=== PATIENT | male | born 1970 | race Caucasian/White ===

== ENCOUNTER 2021-10-14 10:03 | Emergency (ER) | payer BC, OTHER ==
[~2021-10-14] VITALS: Wt 84.9 kg
[2021-10-14 10:36] LABS: MEAN CELL VOLUME 84.9 fl (80.0-94.0); MEAN CORPUSCULAR HGB 29.6 pg (27.0-31.0); MEAN CORPUSCULAR HGB CONC 34.8 g/dl (33.0-37.0); MEAN PLATELET VOLUME 10.4 fl (9.6-12.3); RED BLOOD COUNT 3.65 10*6/uL (4.50-5.90); RED CELL DISTRI WIDTH 16.3 % (0-14.5); WHITE BLOOD COUNT 8.5 10*3/uL (4.8-10.8)
[2021-10-14 10:46] LABS: ACT PARTIAL THROMBO TIME 34.5 SECONDS (20.0-32.1); INTERNATIONAL NORM RATIO 1.5 (2.0-3.5)
[2021-10-14 10:51] LABS: ALKALINE PHOSPHATASE 98 U/L (45-117); BUN 19 mg/dl (7-24); CHLORIDE 97 mmol/L (98-107); CREATININE 1.38 mg/dL (0.70-1.30); POTASSIUM 4.5 mmol/L (3.5-5.1); SGOT/AST 58 IU/L (3-35); SGPT/ALT 66 U/L (12-78); SODIUM 127 mmol/L (136-145); TOTAL PROTEIN 5.2 gm/dL (6.4-8.2)
[2021-10-14 10:54] LABS: ETHYL ALCOHOL < 3.0 mg/dl (<3)
[2021-10-14 10:59] LABS: MANUAL DIFF REFLEX YES
[2021-10-14 11:02] LABS: ATYPICAL LYMPHS 1 % (0-0); PLATELET SUFFICIENCY LOW (NORMAL); TOTAL CELLS COUNTED 100 #CELLS
[2021-10-14 11:04] LABS: PLATELET COUNT AUTOMATED 21 10*3/uL (130-400)
[2021-10-14 11:12] LABS: BILIRUBIN 1+ (Negative); BLOOD 1+ (Negative); CLARITY Clear (Clear); COLOR Dark Yellow (Yellow); GLUCOSE Negative (Negative); KETONE Trace (Negative); LEUKO ESTERASE Trace (Negative); NITRITE Negative (Negative); PH 7.5 (4.5-8.0)
[2021-10-14 11:21] LABS: BACTERIA 1+; RBC 31-40 rbc/hpf (0-2)
[2021-10-14 11:32] LABS: URINE AMPHETAMINES < 1000 (1000ng/ml); URINE BARBITURATES < 200 (200ng/ml); URINE BENZODIAZEPINES < 200 (200ng/ml); URINE CANNABINOIDS (THC) < 50 (50ng/ml); URINE COCAINE < 300 (300ng/ml); URINE METHADONE < 300 (300ng/ml); URINE OPIATES < 300 (300ng/ml)
[2021-10-14 11:38] LABS: URINE PHENCYCLIDINE < 25 (25ng/ml)
== END 2021-10-14 16:00 | disposition short-term general hospital (02) ==
LOC: ED 10:03
PROVIDERS: Emergency Medicine
DX: K72.90 Hepatic failure, unspecified without coma (principal); F17.200 Nicotine dependence, unspecified, uncomplicated

== ENCOUNTER 2024-06-02 21:19 | Emergency (ER) | payer OTHER ==
[~2024-06-02] VITALS: Ht 180.3 cm; Wt 104.1 kg
[2024-06-02] MEDS ORDERED: Amoxicillin/Clavulanate Pota 875 MG TAB PO ONE (21:30)
[2024-06-02] MEDS ORDERED: SODIUM CHLORIDE 0.9% 500 ML IV ONE (21:30)
[2024-06-03] MEDS ORDERED: AMOX-CLAV 875-1 EACH PO (00:15)
== END 2024-06-03 00:19 | disposition home or self-care (01) ==
LOC: ED 21:19
DX: S01.511A Laceration without foreign body of lip, initial encounter (principal); S01.81XA Laceration without foreign body of other part of head, initial encounter; I10 Essential (primary) hypertension; W54.0XXA Bitten by dog, initial encounter; Y93.89 Activity, other specified; Y92.009 Unspecified place in unspecified non-institutional (private) residence as the place of occurrence of the external cause; Y99.8 Other external cause status